=== PATIENT | male | born 1970 | race African-American/Black ===

== ENCOUNTER 2016-11-10 06:30 | Day surgery (SDC) | payer OTHER ==
[2016-11-09 11:18] VITALS: BMI 50.1
[2016-11-10] MEDS ORDERED: DEXAMETHASONE SOD PHOSPHATE/PF 10 MG/ML SDV ONE (08:27)
[2016-11-10] MEDS ORDERED: MIDAZOLAM HCL 2 MG/2 ML SINGLE DOSE VIAL ONE ×2 (08:27→10:07)
[2016-11-10] MEDS ORDERED: ROPIVACAINE HCL 0.5% 30ML VIAL ONE (08:27)
[2016-11-10] MEDS ORDERED: PROPOFOL 20 ML ONE (09:36)
[2016-11-10] MEDS ORDERED: ONDANSETRON 4 MG/2 ML VIAL ONE ×2 (09:53→10:39)
[2016-11-10] MEDS ORDERED: CLINDAMYCIN PHOSPHATE 600 MG/4 ML VIAL ONE (09:53)
[2016-11-10] MEDS ORDERED: DEXAMETHASONE SOD PHOSPHATE 4 MG/1 ML VIAL ONE (09:53)
[2016-11-10] MEDS ORDERED: oxyCODONE HCL 5 MG TABLET PO PRN ×2 (10:40)
[2016-11-10] MEDS ORDERED: PROMETHAZINE HCL 25 MG/1 ML VIAL IVPUSH PRN (10:40)
[2016-11-10] MEDS ORDERED: ONDANSETRON 4 MG/2 ML VIAL IVPUSH PRN (10:40)
[2016-11-10] MEDS ORDERED: LACTATED RINGERS SOLUTION 1,000 ML IV SCH (10:45)
[2016-11-10 12:35] VITALS: BP 110/65; PULSE 74; TEMP 98.3
--- NOTE | 2016-11-14 01:20 | OP ---
DATE OF OPERATION: 11/10/2016 SURGEON: Maicol Mota MD FIRE EQUIPMENT INSPECTOR: APOLINAR Anders PREOPERATIVE DIAGNOSIS: 1. Right shoulder impingement syndrome. 2. Right shoulder acromioclavicular degenerative joint disease. 3. Right shoulder superior labral tear, [id number], with synovitis. 4. Long head biceps tendon tear. POSTOPERATIVE DIAGNOSIS: 1. Right shoulder impingement syndrome. 2. Right shoulder acromioclavicular degenerative joint disease. 3. Right shoulder superior labral tear, [id number], with synovitis. 4. Long head biceps tendon tear. PROCEDURE: 1. Right shoulder arthroscopy with subacromial decompression. 2. Right shoulder arthroscopy with resection of distal clavicle acromioclavicular joint. 3. Right shoulder arthroscopy with debridement. 4. Right shoulder arthroscopy with release of biceps tendon. FINDINGS: 1. A 90% tear of the biceps tendon with subluxation out of groove. 2. Glenohumeral synovitis. 3. Anterior grade 3-4 cartilage change of glenoid and humerus. 4. Superior labral tear, [id number], type 1. 5. Partial rotator cuff tear, 15%. 6. Thickened scar tissue of subacromial space, most pronounced anteriorly. 7. Type 2-3 acromion anterolateral spurring. 8. Inferior spur of the clavicle and acromioclavicular degenerative joint disease. PROCEDURE: Informed consent was obtained. The patient was taken to the operating room where the upper extremity was prepped and draped in a sterile fashion. The shoulder was manipulated for a full range of motion. Posterior incision portal was made and directed to glenohumeral joint. Under direct visualization, an anterior incision and portal was made. Extensive synovitis, as well as chondral injuries throughout the glenohumeral joint were dbrided and removed. Any identified labral injuries, including superior labral tear, anterior and posterior, and anterior labrum torn portions were removed as well. Rotator cuff was visualized and noted to have full-thickness tear. The edges were debrided. Posterior incision portal was redirected to subacromial space where a lateral incision portal was made. Excessive and thickened scar tissue noted throughout the subacromial space, including bursal and scar tissue, were removed. The type 2 acromion was converted into a flattened type 1 using a akua for subacromial decompression. Distal inferior spur at the distal clavicle was also dbrided with the use of accessory portal in the AC joint. The edges of the rotator cuff were identified. Sutures were placed into the rotator cuff and secured using anchors throughout the greater tuberosity. Prior to securing, a bleeding bed was made using a small akua, creating a bleeding surface of the rotator cuff insertion. The shoulder was then drained. A single suture as placed on all portals and a sterile dressing was placed. The patient was transferred to the recovery room without complication. Please note that this clavicle resection, including 1-cm of undersurface clavicle extending to the intraarticular portion through an accessory portal. Please note that an additional portal was also made for release of the biceps tendon and securing it back to its stable origin on the superior labrum. MAICOL MOTA M.D. [id number]
--- NOTE | 2016-11-14 13:32 | PATH ---
Surgical Pathology Report Patient Name: ALEXANDRIA HORTON Med. Rec. #: [id number] /Age/Gender: 1970 (Age: 46) / M Account: [id number] Location: [facility] Taken: 11/10/2016 Received: 11/10/2016 Reported: 11/14/2016 Physicians: Maicol Peña M.D. Specimen(s) Received RIGHT SHOULDER SHAVINGS Clinical History Right shoulder impingement syndrome Final Diagnosis RIGHT SHOULDER, ARTHROSCOPIC SHAVING: PORTIONS OF SYNOVIUM, CARTILAGE, SKELETAL MUSCLE AND BONE CONSISTENT WITH ARTHROSCOPIC SHAVINGS. Electronically Signed Veto López M.D. Gross Description Received in formalin, labeled "right shoulder shavings," is a 4 x 4 x 0.3 cm. aggregate of marquez-yellow soft tissue fragments. A sales representative supervisor portion is submitted in one cassette. [facility]/11/13/2016 [facility]/11/13/2016
== END 2016-11-10 12:39 | disposition home or self-care (01) ==
LOC: FASU 06:30
PROVIDERS: ATTEND Orthopaedic Surgery
PROC: 0RNJ4ZZ Release Right Shoulder Joint, Percutaneous Endoscopic Approach (ICD-10-PCS; 2016-11-10)
PROC: 0RBJ4ZZ Excision of Right Shoulder Joint, Percutaneous Endoscopic Approach (ICD-10-PCS; 2016-11-10)
PROC: 0RNJ4ZZ Release Right Shoulder Joint, Percutaneous Endoscopic Approach (ICD-10-PCS; 2016-11-10)
PROC: 0PB94ZZ Excision of Right Clavicle, Percutaneous Endoscopic Approach (ICD-10-PCS; principal; 2016-11-10 10:07)
DX: M75.41 Impingement syndrome of right shoulder (principal); M19.011 Primary osteoarthritis, right shoulder; M66.811 Spontaneous rupture of other tendons, right shoulder; S43.431A Superior glenoid labrum lesion of right shoulder, initial encounter; X58.XXXA Exposure to other specified factors, initial encounter; Y93.9 Activity, unspecified; Y92.9 Unspecified place or not applicable
CPT/HCPCS: 88304-TC